=== PATIENT | male | born 1975 | race Caucasian/White ===

== ENCOUNTER 2019-12-09 13:27 | Emergency (ER) | payer BC ==
[~2019-12-09] VITALS: Ht 180.3 cm; Wt 120.8 kg
[2019-12-09 14:14] LABS: BASO # 0.1 10^3/uL (0.0-0.2); BASO % 1.2 % (0.0-1.0); EOS # 0.2 10^3/uL (0.0-0.5); HEMATOCRIT 44.1 % (42.0-52.0); LYMPH % 34.2 % (24.0-44.0); MEAN CORPUSCULAR HEMOGLOBIN 30.9 pg (27.0-33.0); MEAN CORPUSCULAR VOLUME 90.9 fl (80.0-96.0); MONO # 0.7 10^3/uL (0.0-0.8); NEUTROPHILS # 4.9 10^3/uL (1.5-8.5); NEUTROPHILS % 54.5 % (36.0-66.0); PLATELET COUNT, AUTOMATED 202 10^3/uL (150-450); RED BLOOD COUNT 4.85 10^6/uL (4.30-6.10); WHITE BLOOD COUNT 8.9 10^3/uL (4.0-10.0)
[2019-12-09 14:25] LABS: INR 1.05; PROTHROMBIN TIME 13.5 SECONDS (11.8-14.0)
[2019-12-09 14:26] LABS: PARTIAL THROMBOPLASTIN TIME 29.5 SECONDS (25.0-38.4)
[2019-12-09 14:41] LABS: ALBUMIN 4.2 GM/DL (3.2-5.2); ALT/SGPT 38 U/L (12-78); BILIRUBIN,DIRECT < 0.1 MG/DL (0.0-0.2); BILIRUBIN,TOTAL 0.3 MG/DL (0.2-1.0); BLOOD UREA NITROGEN 22 MG/DL (7-18); CALCIUM LEVEL 9.3 MG/DL (8.5-10.1); CARBON DIOXIDE LEVEL 25 MEQ/L (21-32); CHLORIDE LEVEL 108 MEQ/L (98-107); CK-MB VALUE MASS 2.8 NG/ML (<3.6); CPK CREATINE PHOSPHOKINASE 205 U/L (39-308); CREATININE FOR GFR 1.06 MG/DL (0.70-1.30); ETHYL ALCOHOL (ETHANOL) < 0.003 % (0.000-0.010); FREE T4 1.39 NG/DL (0.76-1.46); GLOMERULAR FILTRATION RATE > 60.0 (>60); GLUCOSE, FASTING 98 MG/DL (70-100); LIPASE 121 U/L (73-393); MAGNESIUM LEVEL 2.1 MG/DL (1.8-2.4); MB/CK RELATIVE INDEX 1.37 (< OR =4); POTASSIUM SERUM 4.2 MEQ/L (3.5-5.1); SODIUM LEVEL 139 MEQ/L (136-145); THYROID STIMULATING HORMONE < 0.005 uIU/ML (0.358-3.740); TOTAL PROTEIN 7.7 GM/DL (6.4-8.2); TROPONIN I < 0.02 NG/ML (< 0.10)
--- NOTE | 2019-12-09 14:41 | REP ---
REASON: Chest pain. FINDINGS: The technique utilized in obtaining the radiograph has magnified the cardiac silhouette and accentuated the interstitial markings. The superior mediastinal structures are midline. The cardiac silhouette is unremarkable in size, shape, and position. The diaphragmatic surfaces of the lungs are regular, and the costophrenic angles are clear. The pulmonary reis are clear. The imaged osseous structures are intact. IMPRESSION: There is no acute cardiopulmonary disease. Electronically Signed by Oneil Ordaz DO 12/09/2019 03:00 P
[2019-12-09 15:17] LABS: T UPTAKE 34 % (33-40)
[2019-12-09] MEDS ORDERED: NS 1,000 ML IV ONE (15:30)
[2019-12-09 15:39] LABS: FREE THYROXINE INDEX 2.8 % (1.4-3.8); THYROXINE (T4) 8.3 UG/DL (4.5-12.0)
[2019-12-09] MEDS ORDERED: METOPROLOL SUCC (TopROL XL) 50MG **XL** TAB PO STA (16:59)
[2019-12-09] MEDS ORDERED: METO1TAB7 PO (17:13)
[2019-12-09 17:15] VITALS: BP 122/78
--- NOTE | 2019-12-10 09:10 | ECGEPIP ---
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
--- NOTE | 2019-12-11 14:47 | ECGEPIP ---
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
== END 2019-12-09 17:27 | disposition home or self-care (01) ==
LOC: M ED 13:27
DX: I47.1 Supraventricular tachycardia (principal); I47.2 Ventricular tachycardia; E05.90 Thyrotoxicosis, unspecified without thyrotoxic crisis or storm; Z82.49 Family history of ischemic heart disease and other diseases of the circulatory system; F17.220 Nicotine dependence, chewing tobacco, uncomplicated
CPT/HCPCS: 71045; 80048; 80076; 82550; 82553; 83690; 83735; 84439; 84443; 84484; 85025; 85610; 85730; 93005; 93041; 94760; 96360; 99285; G0480

== ENCOUNTER 2019-12-12 20:19 | Observation (INO) | payer BC ==
[~2019-12-12] VITALS: Ht 180.3 cm; Wt 118.0 kg
[~2019-12-12 20:19] MED LIST: METO1TAB7 PO
[2019-12-12] MEDS ORDERED: METO1TAB32 PO (20:29)
[2019-12-12 20:50] LABS: BASO # 0.1 10^3/uL (0.0-0.2); BASO % 1.4 % (0.0-1.0); EOS # 0.3 10^3/uL (0.0-0.5); EOS % 2.9 % (0.0-3.0); HEMATOCRIT 43.1 % (42.0-52.0); HEMOGLOBIN 14.8 g/dl (13.5-17.5); LYMPH # 3.7 10^3/uL (1.5-5.0); LYMPH % 41.4 % (24.0-44.0); MEAN CORPUSCULAR HGB CONC 34.3 g/dl (32.0-36.5); MEAN CORPUSCULAR VOLUME 90.4 fl (80.0-96.0); MONO # 0.8 10^3/uL (0.0-0.8); MONO % 8.9 % (0.0-5.0); NEUTROPHILS % 45.1 % (36.0-66.0); PLATELET COUNT, AUTOMATED 180 10^3/uL (150-450); RED BLOOD COUNT 4.77 10^6/uL (4.30-6.10); WHITE BLOOD COUNT 8.9 10^3/uL (4.0-10.0)
--- NOTE | 2019-12-12 20:52 | ECGEPIP ---
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
[2019-12-12 21:01] LABS: INR 1.04; PROTHROMBIN TIME 13.3 SECONDS (11.8-14.0)
[2019-12-12 21:02] LABS: PARTIAL THROMBOPLASTIN TIME 31.9 SECONDS (25.0-38.4)
[2019-12-12 21:25] LABS: ALBUMIN 3.9 GM/DL (3.2-5.2); ALT/SGPT 57 U/L (12-78); BILIRUBIN,DIRECT < 0.1 MG/DL (0.0-0.2); BILIRUBIN,TOTAL 0.2 MG/DL (0.2-1.0); BLOOD UREA NITROGEN 22 MG/DL (7-18); CALCIUM LEVEL 8.8 MG/DL (8.5-10.1); CARBON DIOXIDE LEVEL 28 MEQ/L (21-32); CHLORIDE LEVEL 105 MEQ/L (98-107); CK-MB VALUE MASS 1.6 NG/ML (<3.6); CPK CREATINE PHOSPHOKINASE 114 U/L (39-308); CREATININE FOR GFR 1.22 MG/DL (0.70-1.30); FREE T4 1.15 NG/DL (0.76-1.46); GLOMERULAR FILTRATION RATE > 60.0 (>60); GLUCOSE, FASTING 108 MG/DL (70-100); MAGNESIUM LEVEL 1.8 MG/DL (1.8-2.4); PHOSPHORUS LEVEL 4.4 MG/DL (2.5-4.9); POTASSIUM SERUM 3.9 MEQ/L (3.5-5.1); SODIUM LEVEL 138 MEQ/L (136-145); THYROID STIMULATING HORMONE < 0.005 uIU/ML (0.358-3.740); TROPONIN I < 0.02 NG/ML (< 0.10)
[2019-12-12] MEDS ORDERED: FLECAINIDE 50MG TABLET PO ONE (21:45)
[2019-12-12] MEDS ORDERED: METO1TAB7 PO (21:53)
[2019-12-12] MEDS ORDERED: POTASSIUM CHLORIDE 10 MEQ SR TABLET PO ONE (22:00)
[2019-12-12] MEDS ORDERED: MAG SULF 1GM/100ML (MAG RUN) 1 GM in IV 1 EA IV ONE (22:00)
[2019-12-12 23:00] VITALS: BP 131/84
--- NOTE | 2019-12-12 23:47 | HPE ---
DATE OF ADMISSION: 12/12/2019 CHIEF COMPLAINT: Palpitations. Lightheadedness HISTORY OF THE PRESENT ILLNESS: This is a 44-year-old male with no past medical history, presents to the emergency room with recurrent episodes of palpitations. 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 He had drank two cups of caffeinated beverages and felt his heart racing without any shortness of breath. He felt slightly lightheadedness and went inside. This abated after a few minutes. Then, on Monday, he had a similar episode while he was in the house just walking around and doing some chores; it again subsided within a few seconds. 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 It had occurred on and off throughout the day where he would feel palpitations, which would néstor by itself. He noted that taking a deep breath and holding it and pushing would make it subside. It lasted for a few seconds, but was persistent. The patient then went to the emergency room for evaluation. He was found to have paroxysmal supraventricular tachycardia, was given metoprolol 50 mg and was referred to Dr. Wood. The patient was seen by Dr. Wood today and recommended decreasing the dose to 25 mg daily and to schedule an echocardiogram tomorrow. At dinner today, the patient did not feel well. After dinner, as he was trying to wash the dishes, he felt very lightheaded, his heart went very fast, then very slow. According to the , he looked fine, did not look diaphoretic, pale, or purplish. He then sat down, felt a little bit better but would not subside. He called his friend who is an emergency health care / medical job titles (EMT), who then recommended for him to call an ambulance. He was brought into the emergency room, heart rate was ranging between 30-130, blood pressure was well maintained 104 systolic. Glucose level was within normal. He was saturating 98% on room air. Per Dr. Wood, the patient should be started on flecainide 50 mg twice a day. He did receive one dose of flecainide in the ER. His initial EKG showed sinus tachycardia with frequent premature ventricular contractions (PVCs). He had nonsustained ventricular tachycardia (v tach). Potassium (K) and magnesium (mag) were within normal with potassium of 3.9 and magnesium of 1.8. He was supplemented with 40 mEq of potassium and 1 gram intravenously magnesium sulfate. Calcium level was normal at 8.8. Patient's cardiac markers were negative. He was noted to have a TSH of less than 0.005 but free T4 was within normal. According to the patient, this was seen previously on Monday when he was seen in the ER, and he was referred to the provider. Patient otherwise denies fever or chills, shortness of breath, cough, nausea, vomiting, diarrhea, abdominal pain, dysuria, urgency, frequency, near syncope, syncopal episode, recurrent falls, gait ataxia, bilateral upper and lower extremity weakness, paresthesias, headaches, changes in vision. No changes in appetite. No unusual rash or lymphadenopathy. No weight gain or weight loss. PAST MEDICAL HISTORY: Left knee meniscal injury. Hammertoe on the right 2nd and 3rd proximal interphalangeal (PIP) joints. Abnormal thyroid-stimulating hormone (TSH) with possible hyperthyroidism. PAST SURGICAL HISTORY: Left knee meniscal repair. ALLERGIES: No known drug allergies. HOME MEDICATIONS: - metoprolol 25 mg daily, decreased from 50 mg, given by the ER per Dr. Wood's recommendation. 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 He denies any cigarette use. He usually has two beers every couple of nights. Last drink was 12/02/2019. Denies recreational drug use. FAMILY HISTORY: Mother and father are alive. Father is age 73 with diabetes, arrhythmias, pacemaker. Mother alive, age 69, diabetes and thyroid disease. Brother is alive and well, no medical problems. Sister alive with thyroid issues. REVIEW OF SYSTEMS: Per history of the present illness. 12-point system otherwise negative. PHYSICAL EXAMINATION: Temperature 99.1, pulse currently 89, presenting pulse was 132, sinus tachycardia, respiratory rate of 18, blood pressure 129/72, 96% on room air. Generally, the patient is awake, alert, oriented to person, place and time, answering questions appropriately. No conversational dyspnea. HEENT no jugular venous distention (JVD), thyromegaly, or cervical lymphadenopathy. no periorbital edema or exophthalmos. no thyromegaly or nodularity of the thyroid gland which is also nontender. Lungs are clear to auscultation. No wheezing, rales, or rhonchi. Heart: S1, S2, sinus rhythm with episodes of sinus tachycardia. Nondisplaced point of maximum impulse. No murmurs, rubs, or gallops noted. Abdomen: Soft, nontender, nondistended. Positive bowel sounds. No hepatosplenomegaly. No rebound or guarding. Lungs: Clear to auscultation. No wheezing, rales, or rhonchi. Extremities: No cyanosis, clubbing, or any pitting edema. EKG: Sinus tachycardia, ventricular rate of 101 with frequent PVCs, QRS of 23, QT of 371, QTc of 43. LABORATORY DATA: White count 8.9, hemoglobin 14.8, hematocrit 43.1, platelet count 180, 45% neutrophils, 41% lymphocytes, 8.9 monocytes, 2.9 eosinophils, 1.4 basophils. Sodium 138, potassium 3.9, chloride 105, bicarbonate 28, BUN 22, creatinine 1.22, glucose 108, calcium 8.8, phosphorus 4.4, magnesium 1.8, total bilirubin 0.2, direct bilirubin less than 0.1, AST 27, ALT 57, alkaline phosphatase 106, total CK 114, MB fraction 1.6, relative index 1.4, troponin less than 0.02, total protein 7, albumin 3.9, TSH less than 0.005, free T4 1.15. IMAGING STUDIES: Chest x-ray 12/09/2019: No acute cardiopulmonary process. ASSESSMENT AND PLAN: This is a 44-year-old male with no significant past medical history with possible hyperthyroidism with low TSH, presents to the emergency room for the second time after complaining of palpitations, initially seen this past Monday and found to have SVT, given metoprolol 50 mg daily[address] Seen by Dr. Wood today with recommendations to decrease metoprolol to 25 mg daily. Now presents with recurrent palpitations with increased rate to 130 and nonsustained ventricular tachycardia. The patient is admitted and was given one dose of flecainide. IMPRESSION: 1.Near syncope due to SVT / Nonsustained ventricular tachycardia. Patient had multiple beats of ventricular tachycardia. Cardiac markers were negative on admission, will cycle serially. Echocardiogram has been ordered. Patient will be evaluated for other cardiovascular risk factors. Will check lipid panel, A1c, and monitor with serial blood pressure checks and routine vitals. Per Dr. Wood, the patient is to be kept on flecainide 50 mg twice a day. Depending on the echo results, morning attending physician should touch base with Dr. Wood regarding results of the echocardiogram and any other further recommendations. 2. Hyperthyroidism with low TSH level. Free T4, however, is normal. Will check a full thyroid profile,Thyrotropin binding inhibiting immunoglobulin to rule out Grave's disease and nuc med thyroid scan in the morning. 3. Obesity. Body mass index (BMI) of 36.2. Will add metabolic panel. Patient does not have documented hypertension. Will check A1c and lipid panel. Encourage weight loss. 4. Diet: 2-gram sodium diet. 5. Deep vein thrombosis (DVT) prophylaxis with Lovenox subcu daily. MTDD
[2019-12-13] VITALS: BP 130/75
--- NOTE | 2019-12-13 02:11 | REP ---
Clinical: Chest pain . Comparison: 12/09/2019 . Findings: The mediastinum and cardiac silhouette are stable and within normal limits for portable technique. The lung reis are clear without acute consolidation, effusion, or pneumothorax. Skeletal structures are intact. Impression: No acute cardiopulmonary process appreciated. Electronically Signed by Lloyd Gayle MD 12/13/2019 02:02 A
[2019-12-13 03:09] LABS: BLOOD UREA NITROGEN 22 MG/DL (7-18); CALCIUM LEVEL 9.2 MG/DL (8.5-10.1); CARBON DIOXIDE LEVEL 29 MEQ/L (21-32); CHLORIDE LEVEL 106 MEQ/L (98-107); GLOMERULAR FILTRATION RATE > 60.0 (>60); GLUCOSE, FASTING 104 MG/DL (70-100); POTASSIUM SERUM 4.4 MEQ/L (3.5-5.1); SODIUM LEVEL 138 MEQ/L (136-145)
[2019-12-13 04:00] VITALS: BP 123/83
[2019-12-13 05:56] LABS: IONIZED CALCIUM 4.8 MG/DL (4.5-5.3)
[2019-12-13 06:11] LABS: BASO # 0.1 10^3/uL (0.0-0.2); BASO % 1.4 % (0.0-1.0); EOS # 0.2 10^3/uL (0.0-0.5); HEMATOCRIT 46.3 % (42.0-52.0); HEMOGLOBIN 15.9 g/dl (13.5-17.5); LYMPH # 2.8 10^3/uL (1.5-5.0); LYMPH % 35.3 % (24.0-44.0); MEAN CORPUSCULAR HEMOGLOBIN 31.4 pg (27.0-33.0); MEAN CORPUSCULAR HGB CONC 34.3 g/dl (32.0-36.5); MEAN CORPUSCULAR VOLUME 91.3 fl (80.0-96.0); MONO # 0.7 10^3/uL (0.0-0.8); MONO % 8.5 % (0.0-5.0); NEUTROPHILS # 4.2 10^3/uL (1.5-8.5); NEUTROPHILS % 52.6 % (36.0-66.0); PLATELET COUNT, AUTOMATED 205 10^3/uL (150-450); RED BLOOD COUNT 5.07 10^6/uL (4.30-6.10)
[2019-12-13 06:18] LABS: HEMOGLOBIN A1c 5.7 %
[2019-12-13 06:34] LABS: CK-MB VALUE MASS 1.3 NG/ML (<3.6); CPK CREATINE PHOSPHOKINASE 102 U/L (39-308); MB/CK RELATIVE INDEX 1.27 (< OR =4); TROPONIN I < 0.02 NG/ML (< 0.10)
[2019-12-13 06:39] LABS: CHOLESTEROL LEVEL 250 MG/DL (<200); CHOLESTEROL RISK RATIO 4.807 (<5); FREE THYROXINE INDEX 3.2 % (1.4-3.8); HDL CHOLESTEROL 52 MG/DL (>40); LDL CHOLESTEROL 173 MG/DL (<100); MAGNESIUM LEVEL 2.2 MG/DL (1.8-2.4); NON-HDL-C 198 MG/DL; T UPTAKE 36 % (33-40); THYROID STIMULATING HORMONE < 0.005 uIU/ML (0.358-3.740); TRIGLYCERIDES LEVEL 123 MG/DL (<150)
[2019-12-13] MEDS ORDERED: SLF 3 ML SYR IV PRN (07:45)
[2019-12-13 08:00] VITALS: BP 131/71
[2019-12-13] MEDS: FLECAINIDE 50MG TABLET PO SCH ×2 (08:24→20:57)
[2019-12-13 08:32] LABS: BLOOD UREA NITROGEN 19 MG/DL (7-18); CALCIUM LEVEL 8.7 MG/DL (8.5-10.1); CARBON DIOXIDE LEVEL 25 MEQ/L (21-32); CHLORIDE LEVEL 107 MEQ/L (98-107); CREATININE FOR GFR 0.94 MG/DL (0.70-1.30); GLOMERULAR FILTRATION RATE > 60.0 (>60); GLUCOSE, FASTING 98 MG/DL (70-100); POTASSIUM SERUM 4.3 MEQ/L (3.5-5.1); SODIUM LEVEL 138 MEQ/L (136-145)
[2019-12-13] MEDS ORDERED: ENOXAPARIN 40MG/0.4ML SYRINGE (J1650 PER 10MG) SC SCH (09:00)
--- NOTE | 2019-12-13 10:31 | ECGEPIP ---
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 Electronically Signed on 12-13-2019 10:31:06 EDT by Martin Wood
[2019-12-13 12:00] VITALS: BP 136/89
--- NOTE | 2019-12-13 13:51 | ECHO ---
DATE OF STUDY: 12/13/2019 REFERRING PHYSICIAN: Dr. Shwetha Flores INDICATION: Supraventricular tachycardia. HEIGHT: 180 cm. WEIGHT: 118 kg. 2-D MEASUREMENTS: Left atrium: 4.4 cm Aortic root: 3.4 cm Ventricular septum: 0.98 cm Posterior wall: 0.82 cm Left ventricle diastole: 4.9 cm Aortic annulus: 2.5 cm Inferior vena cava: 2.0 cm DOPPLER MEASUREMENTS: Aortic valve velocity: 99.3 cm/sec No mitral stenosis No mitral regurgitation No tricuspid regurgitation No pulmonic regurgitation Mitral E velocity: 49.4 cm/sec Mitral A velocity: 60.2 cm/sec Mitral deceleration time: 211 ms Pulmonary artery systolic pressure: 19 mmHg MITRAL ANNULAR TISSUE DOPPLER: E prime septal: 6.4 cm/sec E prime lateral: 11.4 cm/sec DESCRIPTION: The rhythm was sinus rhythm and sinus bradycardia observed. Image quality was fair with the exception of the apical window which was technically difficult. No pericardial effusion. This was a 2-D, M-mode, color flow Doppler and pulse wave Doppler examination and included mitral annular tissue Doppler. CONCLUSIONS: 1. Normal left ventricle internal dimensions and wall thickness. Normal regional LV wall motion and wall thickening. Normal LV systolic function. LVEF 60% by visual estimate. Grade 1 LV diastolic dysfunction (impaired relaxation filling pattern). 2. Mild left atrial dilatation. 3. Otherwise normal appearing echocardiogram Doppler. 4. Moderately technically difficult echocardiogram.
[2019-12-13] MEDS: SLF 3 ML SYR IV SCH ×3 (14:00→22:00)
[2019-12-13 15:30] LABS: BLOOD UREA NITROGEN 17 MG/DL (7-18); CARBON DIOXIDE LEVEL 26 MEQ/L (21-32); CHLORIDE LEVEL 105 MEQ/L (98-107); CREATININE FOR GFR 0.94 MG/DL (0.70-1.30); GLOMERULAR FILTRATION RATE > 60.0 (>60); GLUCOSE, FASTING 113 MG/DL (70-100); POTASSIUM SERUM 4.2 MEQ/L (3.5-5.1); SODIUM LEVEL 138 MEQ/L (136-145)
[2019-12-13 16:00] VITALS: BP 137/92
--- NOTE | 2019-12-13 18:10 | IPNPDOC ---
Date Seen The patient was seen on 12/13/19. Progress Note SUBJECTIVE: 44-year-old male with past medical history of supraventricular tachycardia which was recently diagnosed, was readmitted for SVT. Patient was diagnosed with SVT 1-2 weeks ago, started on metoprolol, which he was unable to tolerate, dose was decreased by saddle and harness maker, but patient had episodes of bradycardia, metoprolol has been discontinued an outpatient has been started on flecainide during this hospitalization. Patient seen in the morning, ambulating the halls, asymptomatic, no complaints, has remained asymptomatic since last night, without recurrence of arrhythmia. He denies any shortness of breath, chest pain, nausea, vomiting, palpitations, diarrhea, constipation or headaches. 10 point review of system is negative except for above PHYSICAL EXAMINATION: VITAL SIGNS: Please see below. GENERAL: No distress HEENT: Normocephalic, atraumatic, moist mucous membranes NECK: Supple CARDIOVASCULAR EXAMINATION: S1, S2, no murmurs RESPIRATORY EXAMINATION: Clear to auscultation, no wheezing ABDOMINAL EXAMINATION: Soft, nontender, nondistended, positive bowel sounds EXTREMITIES: Range of motion intact SKIN: No rash NEUROLOGICAL EXAMINATION: Alert and oriented 3, no focal deficits PSYCHIATRIC EXAMINATION: Calm and cooperative LABORATORY DATA, IMAGING STUDIES, MICROBIOLOGY: Please see below. ASSESSMENT AND PLAN: 44-year-old male with no significant past medical history and recent diagnosis of SVT. He is readmitted for SVT. PROBLEMS: 1. SVT: Metoprolol discontinued as patient had episodes of bradycardia, continue flecainide, cardiology evaluation appreciated, echocardiogram showing grade 1 diastolic dysfunction and left atrial enlargement, no wall motion abnormalities or acute pathology noted. Patient will require outpatient consultation with stamping die maker and a sleep study. 2. Subclinical hyperthyroidism: TSH low, T4/T3 within normal limits, unable to perform radionucleotide uptake test due to lack of equipment, TSH receptor antibodies ordered, will hold off on treatment for now, no bearing machine operator available at this time. VS, I&O, 24H, Fishbone Vital Signs/I&O Vital Signs Date Time Temp Pulse Resp B/P (MAP) Pulse Ox O2 Delivery O2 Flow Rate FiO2 12/13/19 16:00 97.8 62 17 137/92 (107) 95 Room Air I&O- Last 24 Hours up to 6 AM 12/13/19 06:00 Intake Total 110 ml Output Total 775 ml Balance -665 ml Laboratory Data 24H LABS Laboratory Tests 2 12/12/19 20:33: Immature Granulocyte % (Auto) 0.3, Neutrophils (%) (Auto) 45.1, Lymphocytes (%) (Auto) 41.4, Monocytes (%) (Auto) 8.9H, Eosinophils (%) (Auto) 2.9, Basophils (%) (Auto) 1.4H, Neutrophils # (Auto) 4.0, Lymphocytes # (Auto) 3.7, Monocytes # (Auto) 0.8, Eosinophils # (Auto) 0.3, Basophils # (Auto) 0.1, Nucleated Red Blood Cells % (auto) 0.0, Prothrombin Time 13.3, Prothromb Time International Ratio 1.04, Activated Partial Thromboplast Time 31.9, Anion Gap 5L, Glomerular Filtration Rate > 60.0, Calcium Level 8.8, Phosphorus Level 4.4, Magnesium Level 1.8, Total Bilirubin 0.2, Direct Bilirubin < 0.1, Aspartate Amino Transf (A ST/SGOT) 27, Alanine Aminotransferase (ALT/SGPT) 57, Alkaline Phosphatase 106, Total Creatine Kinase 114, Creatine Kinase MB 1.6, Creatine Kinase MB Relative Index 1.40, Troponin I < 0.02, Total Protein 7.0, Albumin 3.9, Albumin/Globulin Ratio 1.26, Thyroid Stimulating Hormone (TSH) < 0.005L, Free Thyroxine 1.15 12/13/19 02:33: Anion Gap 3L, Glomerular Filtration Rate > 60.0, Calcium Level 9.2 12/13/19 05:33: Immature Granulocyte % (Auto) 0.2, Neutrophils (%) (Auto) 52.6, Lymphocytes (%) (Auto) 35.3, Monocytes (%) (Auto) 8.5H, Eosinophils (%) (Auto) 2.0, Basophils (%) (Auto) 1.4H, Neutrophils # (Auto) 4.2, Lymphocytes # (Auto) 2.8, Monocytes # (Auto) 0.7, Eosinophils # (Auto) 0.2, Basophils # (Auto) 0.1, Nucleated Red Blood Cells % (auto) 0.0, Anion Gap 6L, Glomerular Filtration Rate > 60.0, Calcium Level 8.7, Magnesium Level 2.2, Total Creatine Kinase 102, Creatine Kinase MB 1.3, Creatine Kinase MB Relative Index 1.27, Troponin I < 0.02, Thyro id Stimulating Hormone (TSH) < 0.005L, Estimated Mean Plasma Glucose 117H, Hemoglobin A1c 5.7, Whole Blood Ionized Calcium 4.8, Triglycerides Level 123, Total Cholesterol 250H, LDL Cholesterol 173H, Non-HDL Cholesterol (LDL + VLDL) 198, Total HDL Cholesterol 52, Cholesterol/HDL Ratio 4.807, Free Thyroxine Index 3.2, Thyroxine (T4) 9.0, Triiodothyronine (T3) Uptake 36 12/13/19 14:50: Anion Gap 7L, Glomerular Filtration Rate > 60.0, Calcium Level 9.0 CBC/BMP Laboratory Tests 12/12/19 20:33 12/13/19 02:33 12/13/19 05:33 12/13/19 14:50 LISSA SILVA MD Dec 13, 2019 18:10
[2019-12-13] MEDS ORDERED: ACETAMINOPHEN TAB 650MG DOSE (2X325MG) PO PRN (18:30)
[2019-12-13 20:00] VITALS: BP 115/63
--- NOTE | 2019-12-13 22:20 | IPNPDOC ---
Date Seen The patient was seen on 12/13/19. Progress Note TELE: sustained Vtach x 2 minutes. HD stable and asymptomatic. plan: per [facility] dental surgeon, Dr. Jose Pena, transfer to [facility]rophys[facility] and AICD evaluation. VS, I&O, 24H, Fishbone Vital Signs/I&O Vital Signs Date Time Temp Pulse Resp B/P (MAP) Pulse Ox O2 Delivery O2 Flow Rate FiO2 12/13/19 20:00 97.2 61 16 115/63 (80) 96 Room Air I&O- Last 24 Hours up to 6 AM 12/13/19 05:59 Intake Total 110 ml Output Total 775 ml Balance -665 ml Laboratory Data 24H LABS Laboratory Tests 2 12/13/19 02:33: Anion Gap 3L, Glomerular Filtration Rate > 60.0, Calcium Level 9.2 12/13/19 05:33: Anion Gap 6L, Glomerular Filtration Rate > 60.0, Calcium Level 8.7, Immature Granulocyte % (Auto) 0.2, Neutrophils (%) (Auto) 52.6, Lymphocytes (%) (Auto) 35.3, Monocytes (%) (Auto) 8.5H, Eosinophils (%) (Auto) 2.0, Basophils (%) (Auto) 1.4H, Neutrophils # (Auto) 4.2, Lymphocytes # (Auto) 2.8, Monocytes # (Auto) 0.7, Eosinophils # (Auto) 0.2, Basophils # (Auto) 0.1, Nucleated Red Blood Cells % (auto) 0.0, Estimated Mean Plasma Glucose 117H, Hemoglobin A1c 5.7, Whole Blood Ionized Calcium 4.8, Magnesium Level 2.2, Total Creatine Kinase 102, Creatine Kinase MB 1.3, Creatine Kinase MB Relative Index 1.27, Troponin I < 0.02, Triglycerides Level 123, Total Cholesterol 250H, LDL Cholesterol 173H, Non-HDL Cholesterol (LDL + VLDL) 198, Total HDL Cholesterol 52, Cholesterol/HDL Ratio 4.807, Thyroid Stimulating Hormone (TSH) < 0.005L, Free Thyroxine Index 3.2, Thyroxine (T4) 9.0, Triiodothyronine (T3) Uptake 36 12/13/19 14:50: Anion Gap 7L, Glomerular Filtration Rate > 60.0, Calcium Level 9.0 12/13/19 20:42: CBC/BMP Laboratory Tests 12/13/19 02:33 12/13/19 05:33 12/13/19 14:50 MITZI DC MD Dec 13, 2019 22:20
--- NOTE | 2019-12-13 23:11 | DS.PDOC ---
Discharge Summary General Date of Admission Dec 12, 2019 at 20:20 Date of Discharge 12/13/2019 Attending Physician: MITZI DC MD Specialist/Consultants Involve: Jose Pena Specialist/Consultants Involve Dr. Munoz-part of same cardiology group as Dr. Pena. Discharge Summary PROCEDURES PERFORMED DURING STAY: Transthoracic echocardiogram ADMITTING/DISCHARGE DIAGNOSES: Sustained ventricular tachycardia Supraventricular tachycardia Non-sustained ventricular tachycardia hyperthyroidism Obesity hypercholesterolemia COMPLICATIONS/CHIEF COMPLAINT: Palpitations HISTORY OF PRESENT ILLNESS/HOSPITAL COURSE: This is a 44-year-old male with no past medical history who presented to the emergency department last Monday with recurrent episodes of palpitations. He states he was working outside in the [employer], had to caffeinated beverages and felt his heart racing without any shortness of breath. He began to feel slightly lightheaded and went inside. This abated after a few minutes. The following day he had a similar episode while in the house walking around doing chores that again subsided within a few seconds. 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 He noted that taking a deep breath and holding it would cause the palpitations to cease. They typically lasted a few seconds but were persistent so he elected to go to the ED. On initial evaluation at [facility] ED he was found to have paroxysmal supraventricular tachycardia and was given metoprolol 50 mg [address] referred to Dr. Wood, emt p. The patient was seen by Dr. Wood on 12/12/2019 and the dose was decreased to 25 mg daily with an echocardiogram scheduled for the following day. At dinner on 12/12/2019, the patient began to not feel well, became lightheaded had palpitations and then felt his heart slowed down as well. Despite sitting down the palpitations persisted. He called his friend who is an EMT who recommended calling EMS. While in the ED his heart rate ranged from 30-130 bpm, but was otherwise normotensive, satting 98% on room air, with normal blood glucose levels. Dr. Wood was contacted and he recommended initiating oral flecainide 50 mg twice daily. The patient received a single dose of flecainide while in the emergency department. His EKG showed sinus tachycardia with frequent PVCs. He had nonsustained ventricular tachycardia. His potassium and magnesium were within normal limits with potassium of 3.9 and magnesium of 1.8. He was given supplemental potassium as well as magnesium sulfate. His cardiac markers were negative. He was noted to have a TSH of less than 0.005 with a normal free T4 as well. He was admitted to the progressive care unit and monitored on telemetry where he continued to have runs of nonsustained ventricular tachycardia throughout the night. During the daytime on 12/13/2019 he only had a single episode of V. tach lasting 50 beats. However at approximately 2030 on 12/13/2019 he had 2 minutes of asymptomatic monomorphic sustained ventricular tachycardia. At that time we reached out to the on-call emt p, Dr. Pena, who recommended urgent transfer to [facility] for consideration of cardiac ablative therapy. Of note, the patient feels that he becomes symptomatic anytime he begins to doze off or go to sleep, but is otherwise asymptomatic when he is lying in bed and awake. His evening dose of flecainide was held. In total he has received 100 mg of oral flecainide during his stay here. DISCHARGE MEDICATIONS: Please see below. ALLERGIES: Please see below. Vitals: (see below) General: No acute distress, laying comfortably in bed. HEENT: Normocephalic, atraumatic. EOMI. No scleral icterus. Moist mucous membranes. No pharyngeal erythema or uvular deviation. Neck: No JVD, lymphadenopathy, or thyromegaly. Cardiac: intermittent tachycardia and regular rate/rhythm, normal S1 and S2, No murmurs, gallops, rubs. Pulm: Clear to auscultation b/l. Symmetric thorax. No wheezing, crackles, rhonch i Abd: Bowel Sounds present. Abdomen is soft, non-tender, non-distended. No masses or eccymosis. Ext: No edema or cyanosis Skin: No skin changes Neuro: No focal neuro deficits Psych: Appropriate affect LABORATORY DATA: Please see below. IMAGIN12/12/2019 CXR: No acute cardiopulmonary process. 12/13/2019 Echocardiogram: 2-D MEASUREMENTS: Left atrium: 4.4 cm Aortic root: 3.4 cm Ventricular septum: 0.98 cm Posterior wall: 0.82 cm Left ventricle diastole: 4.9 cm Aortic annulus: 2.5 cm Inferior vena cava: 2.0 cm DOPPLER MEASUREMENTS: Aortic valve velocity: 99.3 cm/sec No mitral stenosis No mitral regurgitation No tricuspid regurgitation No pulmonic regurgitation Mitral E velocity: 49.4 cm/sec Mitral A velocity: 60.2 cm/sec Mitral deceleration time: 211 ms Pulmonary artery systolic pressure: 19 mmHg MITRAL ANNULAR TISSUE DOPPLER: E prime septal: 6.4 cm/sec E prime lateral: 11.4 cm/sec DESCRIPTION: The rhythm was sinus rhythm and sinus bradycardia observed. Image quality was fair with the exception of the apical window which was technically difficult. No pericardial effusion. This was a 2-D, M-mode, color flow Doppler and pulse wave Doppler examination and included mitral annular tissue Doppler. CONCLUSIONS: 1. Normal left ventricle internal dimensions and wall thickness. Normal regional LV wall motion and wall thickening. Normal LV systolic function. LVEF 60% by visual estimate. Grade 1 LV diastolic dysfunction (impaired relaxation filling pattern). 2. Mild left atrial dilatation. 3. Otherwise normal appearing echocardiogram Doppler. 4. Moderately technically difficult echocardiogram. PROGNOSIS: fair ACTIVITY: As tolerated. DIET: As tolerated DISCHARGE PLAN: Transfer to [facility] TO FOLLOWUP ON ON OUTPATIENT: 1. Low TSH with normal FT4, T3, T4 binding globulin, thyroid stim immunoglobulin pending DISCHARGE CONDITION: [Stable]. TIME SPENT ON DISCHARGE: Greater than 30 minutes. Vital Signs/I&Os Vital Signs Date Time Temp Pulse Resp B/P (MAP) Pulse Ox O2 Delivery O2 Flow Rate FiO2 12/13/19 20:00 97.2 61 16 115/63 (80) 96 Room Air I&O- Last 24 Hours up to 6 AM 12/13/19 06:00 Intake Total 110 ml Output Total 775 ml Balance -665 ml Laboratory Data Labs 24H Laboratory Tests 2 12/13/19 02:33: Anion Gap 3L, Glomerular Filtration Rate > 60.0, Calcium Level 9.2 12/13/19 05:33: Anion Gap 6L, Glomerular Filtration Rate > 60.0, Calcium Level 8.7, Immature Granulocyte % (Auto) 0.2, Neutrophils (%) (Auto) 52.6, Lymphocytes (%) (Auto) 35.3, Monocytes (%) (Auto) 8.5H, Eosinophils (%) (Auto) 2.0, Basophils (%) (Auto) 1.4H, Neutrophils # (Auto) 4.2, Lymphocytes # (Auto) 2.8, Monocytes # (Auto) 0.7, Eosinophils # (Auto) 0.2, Basophils # (Auto) 0.1, Nucleated Red Bloo d Cells % (auto) 0.0, Estimated Mean Plasma Glucose 117H, Hemoglobin A1c 5.7, Whole Blood Ionized Calcium 4.8, Magnesium Level 2.2, Total Creatine Kinase 102, Creatine Kinase MB 1.3, Creatine Kinase MB Relative Index 1.27, Troponin I < 0.02, Triglycerides Level 123, Total Cholesterol 250H, LDL Cholesterol 173H, Non-HDL Cholesterol (LDL + VLDL) 198, Total HDL Cholesterol 52, Cholesterol/HDL Ratio 4.807, Thyroid Stimulating Hormone (TSH) < 0.005L, Free Thyroxine Index 3.2, Thyroxine (T4) 9.0, Triiodothyronine (T3) Uptake 36 12/13/19 14:50: Anion Gap 7L, Glomerular Filtration Rate > 60.0, Calcium Level 9.0 12/13/19 20:42: CBC/BMP Laboratory Tests 12/13/19 02:33 12/13/19 05:33 12/13/19 14:50 Discharge Medications Scheduled Metoprolol Succinate (Metoprolol Succinate) 50 Mg Tab.er.24h, 25 MG PO DAILY, (Reported) Allergies Coded Allergies: No Known Allergies (Unverified , 12/09/19) GME ATTESTATION GME ATTESTATION My faculty preceptor for this patient encounter was physically present during the encounter and was fully available. All aspects of the patient interview, examination, medical decision making process, and medical care plan development were reviewed and approved by the faculty preceptor. The faculty preceptor is aw are and concurs with the plan as stated in the body of this note and will attest to such by his/her cosignature. HASEEB PATEL DO Dec 13, 2019 23:11
== END 2019-12-13 23:32 | disposition short-term general hospital (02) ==
LOC: M ED 20:19 → M ED INP 20:20 → ENRESERVTM 21:56 → ENRESERVDT 21:56 → M PCU 22:40
PROVIDERS: ADMIT General Practice; ATTEND General Practice
DX: I47.2 Ventricular tachycardia (principal); I47.1 Supraventricular tachycardia; I49.3 Ventricular premature depolarization; R55 Syncope and collapse; R00.2 Palpitations; E05.90 Thyrotoxicosis, unspecified without thyrotoxic crisis or storm; E66.9 Obesity, unspecified; E78.00 Pure hypercholesterolemia, unspecified; Z68.36 Body mass index [BMI] 36.0-36.9, adult; Z79.899 Other long term (current) drug therapy
CPT/HCPCS: 36415; 71045; 80048; 80061; 80076; 82330; 82550; 82553; 83036; 83735; 84100; 84436; 84439; 84442; 84443; 84445; 84479; 84484; 85025; 85610; 85730; 93005; 93041; 93306; 94760; 96372; 99285; J1650; J3475

== ENCOUNTER 2019-12-16 13:08 | Observation (INO) | payer BC ==
[~2019-12-16] VITALS: Ht 180.3 cm; Wt 114.9 kg
[~2019-12-16 13:08] MED LIST changes: +METO1TAB32 PO
[2019-12-16] MEDS ORDERED: SOTA80TA53 PO (13:21)
[2019-12-16 14:18] LABS: BASO # 0.1 10^3/uL (0.0-0.2); EOS # 0.2 10^3/uL (0.0-0.5); EOS % 1.7 % (0.0-3.0); HEMATOCRIT 44.2 % (42.0-52.0); HEMOGLOBIN 14.9 g/dl (13.5-17.5); LYMPH # 2.6 10^3/uL (1.5-5.0); LYMPH % 24.3 % (24.0-44.0); MEAN CORPUSCULAR HEMOGLOBIN 30.4 pg (27.0-33.0); MEAN CORPUSCULAR HGB CONC 33.7 g/dl (32.0-36.5); MEAN CORPUSCULAR VOLUME 90.2 fl (80.0-96.0); MONO # 0.8 10^3/uL (0.0-0.8); MONO % 7.8 % (0.0-5.0); NEUTROPHILS # 6.8 10^3/uL (1.5-8.5); NEUTROPHILS % 64.8 % (36.0-66.0); PLATELET COUNT, AUTOMATED 211 10^3/uL (150-450); WHITE BLOOD COUNT 10.5 10^3/uL (4.0-10.0)
--- NOTE | 2019-12-16 14:27 | REP ---
CHEST, SINGLE VIEW: There is no evidence of acute infiltrate. No pleural effusion is seen. The heart is normal in size. The mediastinal silhouette is unremarkable. The visualized osseous structures are intact. IMPRESSION: No acute pulmonary disease. Electronically Signed by Apolinar Rogers MD 12/16/2019 03:21 P
[2019-12-16 14:29] LABS: INR 1.03; PROTHROMBIN TIME 13.2 SECONDS (11.8-14.0)
[2019-12-16 14:30] LABS: PARTIAL THROMBOPLASTIN TIME 33.3 SECONDS (25.0-38.4)
--- NOTE | 2019-12-16 14:37 | REP ---
CT BRAIN WITHOUT IV CONTRAST: CT brain performed without IV contrast. Coronal reconstruction images are performed. The ventricles are normal in size and position with no midline shift or mass effect. Rogers-white differentiation is well maintained. There is no acute intracranial hemorrhage or extra-axial fluid collection. Bone window examination is unremarkable. IMPRESSION: Negative noncontrast CT brain. Electronically Signed by Apolinar Rogers MD 12/16/2019 03:22 P
[2019-12-16 14:44] LABS: BLOOD UREA NITROGEN 17 MG/DL (7-18); CALCIUM LEVEL 9.6 MG/DL (8.5-10.1); CARBON DIOXIDE LEVEL 29 MEQ/L (21-32); CHLORIDE LEVEL 103 MEQ/L (98-107); CK-MB VALUE MASS 1.7 NG/ML (<3.6); CPK CREATINE PHOSPHOKINASE 216 U/L (39-308); CREATININE FOR GFR 0.89 MG/DL (0.70-1.30); GLOMERULAR FILTRATION RATE > 60.0 (>60); GLUCOSE, FASTING 102 MG/DL (70-100); MB/CK RELATIVE INDEX 0.79 (< OR =4); POTASSIUM SERUM 4.1 MEQ/L (3.5-5.1); SODIUM LEVEL 137 MEQ/L (136-145); TROPONIN I < 0.02 NG/ML (< 0.10)
[2019-12-16] MEDS ORDERED: ASPIRIN 325 MG TAB PO ONE (15:00)
[2019-12-16] MEDS ORDERED: ATORVASTATIN 20 MG TAB PO ONE (15:45)
[2019-12-16] MEDS ORDERED: ACETAMINOPHEN TAB 650MG DOSE (2X325MG) PO PRN (15:45)
--- NOTE | 2019-12-16 15:51 | HPEPDOC ---
General Date of Admission Date of Service: Dec 16, 2019 Chief Complaint The patient is a 44-year-old male admitted with a reason for visit of S/S Stroke. Source: Patient Exam Limitations: No limitations Timing/Duration: Other Severity: Other (out applicable) Associated Symptoms: Other (heaviness of left arm and left leg and numbness of tongue) History of Present Illness This is a 44 years old white male with past medical history of abnormal TSH, possible hypothyroidism, recently was transferred to [facility] to [place] with SVT. Patient was unable to complete his stress test. There secondary to abnormal rhythm and he was discharged home on by mouth sotalol yesterday. Today, patient felt heaviness office left leg and arm and also tongue got numb and heavy for about 45 minutes with resolution of symptoms and spontaneously after that time. Patient denies any chest pain, shortness of breath, nausea, vomiting, dizziness, etc. Patient is being admitted with the diagnosis of TIA, rule out CVA Home Medications Scheduled Sotalol HCl (Sotalol) 80 Mg Tablet, 80 MG PO BID, (Reported) Allergies Coded Allergies: No Known Allergies (Unverified , 12/09/19) Past Medical History Medical History History of very low TSH, scheduled at [place] in 2 days. 5. Fine needle aspiration biopsy of his thyroid nodule Surgical History Left knee meniscus repair Family History Father has diabetes. Mother has also diabetes. They both are alive Social History * Smoker: Denies Alcohol: Denies Drugs: denies A-FIB/CHADSVASC A-FIB History Current/History of A-Fib/PAF?: No Review of Systems Constitutional: Denies: Chills, Fever, Malaise, Night Sweats, Weakness, Fatigue, Weight Loss, Lethargy, Other Eyes: Denies: Pain, Vision change, Conjunctivae inflammation, Eyelid inflammation, Redness, Other ENT: Denies: Head Aches, Ear Pain, Dysphagia, Sinus Congestion, Post Nasal Drip, Sore Throat, Epistaxis, Other Symptoms Skin: Denies: Rash, Lesions, Jaundice, Bruising, Itching, Dry, Breakdown, Nail Changes, Other Pulmonary: Denies: Dyspnea, Cough, Pleuritic Chest Pain, Other Symptoms Cardiovascular: Denies: Chest Pain, Palpitations, Orthopnea, Paroxysmal Noc. Dyspnea, Edema, Lt Headedness, Other Symptoms Gastrointestinal: Denies: Nausea, Vomiting, Abdominal Pain, Diarrhea, Constipation, Melena, Hematochezia, Other Symptoms Genitourinary: Denies: Dysuria, Frequency, Incontinence, Hematuria, Retention, Other Symptoms Hematologic: Denies: Bruising, Bleeding Excessively, Petecchia, Purpura, Enlarged Lymph Nodes, Other Hematologic Endocrine: Denies: Polydipsia, Polyphagia, Polyuria, Heat Intolerance, Cold Intolerance, Other Endocrine Sx Musculoskeletal: Denies: Neck Pain, Back Pain, Shoulder Pain, Arm Pain, Hand Pain, Leg Pain, Foot Pain, Joint Pain, Muscle Pain, Spasms, Other Symptoms Neurological: Reports: Other Symptoms (numbness of left arm and leg and tongue) Psych: Denies: Mood Normal, Anxiety, Depression, Memory Issues, Thoughts of Self Harm, Anger, Thoughts of Harming Other, Other Psych Physical Examination General Exam: Positive: Alert, Cooperative Eye Exam: Positive: PERRLA, Conjunctiva & lids normal ENT Exam: Positive: Atraumatic, Mucous membr. moist/pink Neck Exam: Positive: Supple Chest Exam: Positive: Clear to auscultation, Normal air movement Heart Exam: Positive: Rate Normal, Normal S1 Abdomen Exam: Positive: Normal bowel sounds, Soft Extremity Exam: Positive: Normal pulses Skin Exam: Positive: Nl turgor and temperature Neuro Exam: Positive: Strength at 5/5 X4 ext, Cranial Nerves 3-12 NL, Reflexes 2+ Psych Exam: Positive: Mood NL, Oriented x 3 Vital Signs Vital Signs Date Time Temp Pulse Resp B/P (MAP) Pulse Ox O2 Delivery O2 Flow Rate FiO2 12/16/19 14:15 56 16 125/77 (93) 99 Room Air 12/16/19 13:28 98.0 Laboratory Data Labs 24H Laboratory Tests 2 12/16/19 14:03: Bedside Glucose (Misc Panel) 107H 12/16/19 14:06: Immature Granulocyte % (Auto) 0.4, Neutrophils (%) (Auto) 64.8, Lymphocytes (%) (Auto) 24.3, Monocytes (%) (Auto) 7.8H, Eosinophils (%) (Auto) 1.7, Basophils (%) (Auto) 1.0, Neutrophils # (Auto) 6.8, Lymphocytes # (Auto) 2.6, Monocytes # (Auto) 0.8, Eosinophils # (Auto) 0.2, Basophils # (Auto) 0.1, Nucleated Red Blood Cells % (auto) 0.0, Prothrombin Time 13.2, Prothromb Time International Ratio 1.03, Activated Partial Thromboplast Time 33.3, Anion Gap 5L, Glomerular Filtration Rate > 60.0, Calcium Level 9.6, Total Creatine Kinase 216, Creatine Kinase MB 1.7, Creatine Kinase MB Relative Index 0.79, Troponin I < 0.02 CBC/BMP Laboratory Tests 12/16/19 14:06 Problems (1) TIA (transient ischemic attack) Status: Acute Problem Text: Admit patient to PCU under telemetry CT of the head was done which was essentially negative Cardiac telemetry monitoring Will order MRI of the brain Carotid Dopplers Serial troponin Will add aspirin 325 mg and Lipitor 20 mg by mouth daily Repeat lipid profile and thyroid profile in a.m. Echocardiogram was already done on last admission: 1. Normal left ventricle internal dimensions and wall thickness. Normal regional LV wall motion and wall thickening. Normal LV systolic function. LVEF 60% by visual estimate. Grade 1 LV diastolic dysfunction (impaired relaxation filling pattern). 2. Mild left atrial dilatation. 3. Otherwise normal appearing echocardiogram Doppler. 4. Moderately technically difficult echocardiogram. DVT prophylaxis with Lovenox Diet low-cholesterol diet Activity as tolerated Continue home med (sotolol) (2) Hyperthyroidism Status: Acute Problem Text: Patient is a TSH was found very low on last admission with normal T3, T4 he is scheduled for further workup at [place], including possible need for aspiration of his thyroid nodule i will defer all his thyroid workup to endocrine clinic at [place] Plan / VTE VTE Prophylaxis Ordered?: Yes DYLAN RANDOLPH MD Dec 16, 2019 15:51
--- NOTE | 2019-12-16 17:09 | REPVR ---
PROCEDURE INFORMATION: Exam: MR Head Without Contrast Exam date and time: 12/16/2019 4:55 PM Age: 44 years old Clinical indication: Numbness / parasthesia; Left; Additional info: TIA TECHNIQUE: Imaging protocol: MR of the head without contrast. COMPARISON: CT Head without contrast 12/16/2019 1:58 PM FINDINGS: Brain: There is no acute cortical infarction, intracranial hemorrhage or mass. No demyelinating plaques are prior microhemorrhages are detected. Ventricles: Normal. No ventriculomegaly. Bones/joints: Unremarkable. Soft tissues: Unremarkable. Sinuses: No acute sinusitis. Mastoid air cells: Normal as visualized. No mastoid effusion. Orbits: Unremarkable. IMPRESSION: No acute cerebral infarction or intracranial hemorrhage. Electronically signed by: Shwetha Claros On 12/16/2019 17:09:34 PM
[2019-12-16 18:00] VITALS: BP 134/78
--- NOTE | 2019-12-16 18:57 | REP ---
CAROTID ULTRASOUND: Real-time ultrasound evaluation and duplex Doppler interrogation of the extracranial carotid vasculature is performed. There is minimal plaquing and narrowing in both carotid bulbs extending into the internal and external carotid arteries. Luminal narrowing is less than 50%. There is no evidence of hemodynamically significant stenosis of either internal carotid artery. Normal flow velocities are seen. The vertebral arteries demonstrate normal direction of flow. RIGHT LEFT Peak systolic velocity ICA 85.9 cm/s 70.2 cm/s End diastolic velocity ICA 20.30 cm/s 32 cm/s Peak systolic velocity CCA 93.7cm/s 122.2 cm/s Peak systolic velocity ECA 86.5 cm/s 77.6 cm/s ICA/CCA ratio 0.9 0.5 IMPRESSION: Bilateral luminal narrowing of the internal carotid arteries less than 50%. No evidence of hemodynamically significant stenosis. Electronically Signed by Apolinar Rogers MD 12/16/2019 06:48 P
--- NOTE | 2019-12-16 19:09 | ECGEPIP ---
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
[2019-12-16 20:00] VITALS: BP 121/79
[2019-12-16] MEDS ORDERED: SLF 3 ML SYR IV PRN (20:30)
[2019-12-16] MEDS: SLF 3 ML SYR IV SCH (20:31)
[2019-12-16] MEDS: SOTALOL HCL 80 MG TAB PO SCH (20:32)
[2019-12-16 22:07] LABS: IONIZED CALCIUM 4.6 MG/DL (4.5-5.3)
[2019-12-16 22:25] LABS: MAGNESIUM LEVEL 2.2 MG/DL (1.8-2.4)
[2019-12-17] VITALS: BP 111/65
[2019-12-17 04:00] VITALS: BP 117/78
[2019-12-17 05:23] LABS: HEMOGLOBIN 14.8 g/dl (13.5-17.5); MEAN CORPUSCULAR HEMOGLOBIN 30.8 pg (27.0-33.0); MEAN CORPUSCULAR HGB CONC 34.4 g/dl (32.0-36.5); MEAN CORPUSCULAR VOLUME 89.6 fl (80.0-96.0); PLATELET COUNT, AUTOMATED 188 10^3/uL (150-450); WHITE BLOOD COUNT 7.2 10^3/uL (4.0-10.0)
[2019-12-17 05:48] LABS: ALT/SGPT 38 U/L (12-78); BILIRUBIN,TOTAL 0.7 MG/DL (0.2-1.0); BLOOD UREA NITROGEN 18 MG/DL (7-18); CALCIUM LEVEL 9.1 MG/DL (8.5-10.1); CARBON DIOXIDE LEVEL 27 MEQ/L (21-32); CHLORIDE LEVEL 104 MEQ/L (98-107); CHOLESTEROL LEVEL 210 MG/DL (<200); CHOLESTEROL RISK RATIO 5.121 (<5); CREATININE FOR GFR 0.91 MG/DL (0.70-1.30); FREE THYROXINE INDEX 3.1 % (1.4-3.8); GLOMERULAR FILTRATION RATE > 60.0 (>60); GLUCOSE, FASTING 95 MG/DL (70-100); HDL CHOLESTEROL 41 MG/DL (>40); LDL CHOLESTEROL 141 MG/DL (<100); NON-HDL-C 169 MG/DL; POTASSIUM SERUM 4.3 MEQ/L (3.5-5.1); SODIUM LEVEL 138 MEQ/L (136-145); T UPTAKE 34 % (33-40); THYROID STIMULATING HORMONE < 0.005 uIU/ML (0.358-3.740); THYROXINE (T4) 9.1 UG/DL (4.5-12.0); TOTAL PROTEIN 7.3 GM/DL (6.4-8.2); TRIGLYCERIDES LEVEL 139 MG/DL (<150); TROPONIN I < 0.02 NG/ML (< 0.10)
[2019-12-17] MEDS: SLF 3 ML SYR IV SCH ×2 (06:24→14:20)
[2019-12-17 08:00] VITALS: BP 133/84
[2019-12-17 08:49] VITALS: BP 133/84
[2019-12-17] MEDS: SOTALOL HCL 80 MG TAB PO SCH (08:49)
[2019-12-17] MEDS ORDERED: ENOXAPARIN 40MG/0.4ML SYRINGE (J1650 PER 10MG) SC SCH (09:00)
[2019-12-17] MEDS ORDERED: ASPIRIN 325 MG TAB PO SCH (09:00)
[2019-12-17 12:00] VITALS: BP 142/88
[2019-12-17] MEDS ORDERED: ASPI-1 PO (14:08)
[2019-12-17] MEDS ORDERED: ACET1TAB55 PO (14:08)
[2019-12-17] MEDS ORDERED: LOVE1INJ SC (14:08)
--- NOTE | 2019-12-17 15:11 | DS.PDOC ---
Discharge Summary General Date of Admission Dec 16, 2019 at 13:09 Date of Discharge 12/17/19. Attending Physician: Carla Kolb MD Specialist/Consultants Involve: Jose Pena Discharge Summary HISTORY OF PRESENT ILLNESS: This is a 44 years old white male with past medical history of abnormal TSH, possible hyperthyroidism, recently was transferred to [facility] to [place] with SVT, paroxysmal atrial fibrillation. Patient was unable to complete his stress test due to abnormal cardiac rhythm. He was hospitalized there from 12/13/19-12/15/19. He was discharged home sotalol, no anticoagulation. After discharge he had to have the sotalol dose modified by PCP due to abnormal side effects. On 12/16/19 patient felt heaviness office left leg and arm and also tongue got numb and heavy for about 45 minutes with resolution of symptoms and spontaneously after that time. Patient denies any chest pain, shortness of breath, nausea, vomiting, dizziness, etc. CT head in ER was neg. Patient was admitted with the diagnosis of TIA, rule out CVA HOSPITAL COURSE: During hospital admission, patient had no residual neurological deficits. Patient had recent echocardiogram done at [facility] over the weekend showing no abnormalities. Carotid US neg. MRI brain done on 12/17/19 neg. Overnight patient had two episodes of arrhythmia on telemetry. First 10 seconds of monomorphic, nonsustained VT and Second: 10 seconds of what initially started off as monomorphic but later became polymorphic, possible torsades. patient was on his home dose of sotalol. Patient did admit to occasional racing heart rate while here, occasional shortness of breath at times with ambulating. Case was discussed in great detail with both Dr. Davidson Gregorio (cardiology, [facility]) and Dr. Pena (cardiology, our facility). They also discussed the case together. 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 It is difficult to r/o hyperthyroidism as cause of at least some of arrhythmias. Dr. Rooney (cardiology, [facility]) accepted patient and will continue workup there. We are recommending endocrinology consult as well for hyperthyroidism. At the time of transfer, patient denies shortness of breath, n/v/d, chest pain. REVIEW OF SYSTEMS: CONSTITUTIONAL: Denies unexplained weight gain or weight loss, loss of appetite, fever, night sweats EYES: Denies eye drainage, eye pain, visual changes, dry/irritated eye EARS, NOSE, MOUTH, THROAT: Denies difficulty hearing, ringing in ears, mouth sores, loose teeth, sore throat, facial numbness or pain NECK: Denies swollen glands CARDIOVASCULAR: Denies chest pains, swelling of feet or legs, pain in legs with walking RESPIRATORY: Denies shortness of breath, night sweats, wheezing, sputum production, oxygen at home, coughing up blood, cough lasting > 1 month GASTROINTESTINAL: Denies abdominal pain, constipation, bloody stool, diarrhea, heartburn, nausea, vomiting GENITOURINARY: Denies painful urination, bloody urine, frequent urination, urgency, leaking urine, impotence MUSCULOSKELETAL: Denies joint pain, muscle pain, leg swelling INTEGUMENTARY: Denies rash, itching, new skin lesion, change in existing skin lesion, hair loss or increase, breast changes. NEUROLOGICAL: Denies headaches, dizziness, difficulty walking, numbness or tingling PSYCHIATRIC: Denies depression, anxiety, recurrent bad thoughts, mood swings, hallucinations PAST MEDICAL HISTORY: 1. Abnormal TSH 2. Thyroid nodule (scheduled for FNA 12/20/19) 3. Hx of SVT PAST SURGICAL HISTORY: 1. Left knee meniscus repair FAMILY HISTORY: Father has diabetes. Mother has also diabetes. They both are alive SOCIAL HISTORY: * Smoker: Denies Alcohol: denies Drugs: denies ALLERGIES: Please see below. DISCHARGE MEDICATIONS: Please see below. PHYSICAL EXAMINATION: CONSTITUTIONAL: No acute distress, resting comfortably, AAO x 3 EYES: PERRLA, EOM intact, corrective lenses in place HENT, MOUTH: Normocephalic, atraumatic, moist mucous membranes, NECK: SUPPLE, no JVD, no lymphadenopathy, no carotid bruit CV: Regular rate and rhythm, S1S2 normal, no murmurs/rubs/gallops RESPIRATORY: Clear to auscultation bilaterally, no rales/rhonchi/wheezes GI: BS positive in 4 quadrants, soft, nontender, nondistended, no rebound or guarding, no organomegaly : Deferred MUSCULOSKELETAL: Normal ROM. No cyanosis, clubbing, swelling, joint deformity, extremity edema INTEGUMENTARY: Intact, no rashes, no lesions, no erythema NEUROLOGIC: Cranial Nerves II-XII are intact, no focal deficits, 5/5 strength in lower and upper ext PSYCHIATRIC: Mood and affect are normal LABORATORY DATA: Please see below IMAGING: CT head: No acute intracranial abnormality MRI brain: No acute cerebral infarction or intracranial hemorrhage. Carotid US: Bilateral luminal narrowing of the internal carotid arteries less than 50%. No evidence of hemodynamically significant stenosis. CXR: No acute pulmonary disease. ASSESSMENT: Patient is a 44 y/o M transferring to [facility] for recurrent, symptomatic monomorphic VT, nonsustained and hyperthyroidism PLAN: 1. Symptomatic monomorphic VT, nonsustained. At times polymorphic and nonsustained, hx of paroxysmal atrial fib on last admission. ? underlying hyperthyroidism as possible cause of some arrhythmia. Both recent episodes lasted 10 seconds on evening of 12/16/19. Stopped sotalol and patient is current asymptomatic. Holding off on starting new treatment, cardiology accepting as primary to address. 2. Hyperthyrodism, acute. TSH <0.005, T3 and T4 normal. Thyroid nodules needing FNA, was scheduled for this coming Monday at [facility]. Has never seen endocrinology. Would recommend consult. 3. TIA. MRI and CT neg, no residual deficits. At baseline. Workup above. On statin, ASA. 4. DVT px. Enoxaparin. DISPOSITION: Transferring to [facility], Dr. Rooney. TIME SPENT ON DISCHARGE: Greater than 30 minutes. Vital Signs/I&Os Vital Signs Date Time Temp Pulse Resp B/P (MAP) Pulse Ox O2 Delivery O2 Flow Rate FiO2 12/17/19 12:00 98.1 52 17 142/88 (106) 98 Room Air I&O- Last 24 Hours up to 6 AM 12/17/19 06:00 Intake Total 300 ml Output Total 650 ml Balance -350 ml Laboratory Data Labs 24H Laboratory Tests 2 12/16/19 19:53: Troponin I < 0.02 12/16/19 22:00: Whole Blood Ionized Calcium 4.6, Magnesium Level 2.2 12/17/19 04:58: Troponin I < 0.02, Nucleated Red Blood Cells % (auto) 0.0, Anion Gap 7L, Glomerular Filtration Rate > 60.0, Calcium Level 9.1, Total Bilirubin 0.7, Aspartate Amino Transf (AST/SGOT) 16, Alanine Aminotransferase (ALT/SGPT) 38, Alkaline Phosphatase 97, Total Protein 7.3, Albumin 4.0, Albumin/Globulin Ratio 1.21, Triglycerides Level 139, Total Cholesterol 210H, LDL Cholesterol 141H, Non-HDL Cholesterol (LDL + VLDL) 169, Total HDL Cholesterol 41, Cholesterol/HDL Ratio 5.121H, Thyroid Stimulating Hormone (TSH) < 0.005L, Free Thyroxine Index 3.1, Thyroxine (T4) 9.1, Triiodothyronine (T3) Uptake 34 CBC/BMP Laboratory Tests 12/16/19 22:00 12/17/19 04:58 Discharge Medications Scheduled Aspirin (Aspirin) 325 Mg Tablet, 325 MG PO DAILY Enoxaparin Sodium (Lovenox) 40 Mg/0.4 Ml Syringe, 40 MG SC DAILY Scheduled PRN Acetaminophen (Acetaminophen) 325 Mg Tablet, 650 MG PO Q4H PRN for PAIN OR FEVER Allergies Coded Allergies: No Known Allergies (Unverified , 12/09/19) Current Medications Current Medications Medications (Trade) Dose Ordered Sig/Wilian Route PRN Reason Start Time Stop Time Status Last Admin Dose Admin Acetaminophen (Tylenol Tab) 650 mg Q4H PRN PO PAIN OR FEVER 12/16/19 15:45 Aspirin (Aspirin) 325 mg DAILY PO 12/17/19 09:00 12/17/19 08:49 Enoxaparin Sodium (Lovenox) 40 mg DAILY SC 12/17/19 09:00 12/17/19 08:49 Home Med (Med Rec Complete!) ASDIRECTED XX 12/16/19 15:15 12/16/19 15:05 DC Mexiletine HCl (Mexitil) 150 mg TID PO 12/17/19 16:00 12/17/19 13:07 DC Sodium Chloride (Saline Lock Flush) 2 ml ASDIRECTED PRN IV SEE LABEL COMMENTS 12/16/19 20:30 Sodium Chloride (Saline Lock Flush) 2 ml SLF IV 12/16/19 22:00 12/17/19 14:20 Sotalol HCl (Betapace) 80 mg BID PO 12/16/19 21:00 12/17/19 12:39 DC 12/17/19 08:49 Carla Kolb MD Dec 17, 2019 15:11
[2019-12-17] MEDS ORDERED: MEXILETINE 150 MG CAP PO SCH (16:00)
== END 2019-12-17 15:40 | disposition other institution (70) ==
LOC: M ED 13:08 → M PCU 13:09 → ENRESERV 15:43 → M PCU 16:05
PROVIDERS: ADMIT Internal Medicine; ATTEND Internal Medicine
DX: I47.2 Ventricular tachycardia (principal); E05.90 Thyrotoxicosis, unspecified without thyrotoxic crisis or storm; G45.9 Transient cerebral ischemic attack, unspecified; Z79.01 Long term (current) use of anticoagulants; Z79.82 Long term (current) use of aspirin
CPT/HCPCS: 36415; 70450; 70551; 71045; 80048; 80053; 80061; 82330; 82550; 82553; 83735; 84132; 84436; 84443; 84479; 84484; 85025; 85027; 85610; 85730; 86850; 86900; 86901; 93005; 93041; 93880; 94760; 96372; 99285; J1650

== ENCOUNTER → 2020-02-27 | Outpatient (CLI) | payer BC ==
[~2020-02-27] MED LIST changes: +ACET1TAB55 PO; +ASPI-1 PO; +LOVE1INJ SC; +SOTA80TA53 PO
[2020-02-27 13:46] LABS: THYROID STIMULATING HORMONE < 0.005 uIU/ML (0.358-3.740); TOTAL T3 96.4 NG/DL (60.0-181.0)
== END ==
LOC: M PLALAB 11:08
PROVIDERS: ATTEND Internal Medicine Endocrinology, Diabetes & Metabolism
DX: R94.6 Abnormal results of thyroid function studies (principal)

== ENCOUNTER → 2020-03-30 | Outpatient (CLI) | payer BC ==
--- NOTE | 2020-05-19 08:08 | REP ---
RADIONUCLIDE THYROID UPTAKE AND SCAN: HISTORY: Abnormal results of thyroid function studies. TECHNIQUE: 367.0 mCi of I-123 sodium iodine is ingested and 24-hour uptake value is acquired along with functional images. FINDINGS: The 24-hour uptake value is somewhat decreased at 11.63% (25-35%). Functional images demonstrates homogeneous uptake bilaterally in the thyroid lobes. No cold or warm lesion is seen. IMPRESSION: Decreased uptake. Normal homogeneous function. No cold or warm lesion seen. MTDD
== END ==
LOC: M RAD 13:30
PROVIDERS: ATTEND Internal Medicine Endocrinology, Diabetes & Metabolism
DX: R94.6 Abnormal results of thyroid function studies (principal)
CPT/HCPCS: 78012; A9516

== ENCOUNTER → 2020-05-15 | Outpatient (REF) | payer BC ==
[2020-05-15 14:49] LABS: FREE T4 0.98 NG/DL (0.76-1.46); THYROID STIMULATING HORMONE < 0.005 uIU/ML (0.358-3.740)
== END ==
LOC: M LABDRWAD 12:32
PROVIDERS: ATTEND Nurse Practitioner Family
DX: R94.6 Abnormal results of thyroid function studies (principal)

== ENCOUNTER → 2020-07-28 | Outpatient (CLI) | payer BC ==
[2020-07-28 11:57] LABS: FREE T4 0.92 NG/DL (0.76-1.46); THYROID STIMULATING HORMONE < 0.005 uIU/ML (0.358-3.740)
== END ==
LOC: M PLALAB 08:15
PROVIDERS: ATTEND Nurse Practitioner Family
DX: R94.6 Abnormal results of thyroid function studies (principal)

== ENCOUNTER → 2020-08-04 | Outpatient (CLI) | payer BC ==
[2020-08-04 18:18] LABS: FOLLICLE STIMULATING HORMONE 6.9 mIU/mL (1.4-18.1); LUTEINIZING HORMONE 5.3 mIU/mL (1.5-9.3); TESTOSTERONE 203 NG/DL (241-827)
[2020-08-04 20:43] LABS: THYROID STIMULATING HORMONE < 0.005 uIU/ML (0.358-3.740)
== END ==
LOC: M PLALAB 15:44
PROVIDERS: ATTEND Nurse Practitioner Family
DX: R94.6 Abnormal results of thyroid function studies (principal)

== ENCOUNTER → 2020-08-19 | Outpatient (CLI) | payer BC ==
[~2020-08-19] MED LIST changes: +PROHANCE 279.3MG/ML 15ML VIAL As Ordered ONE; +PROHANCE 279.3MG/ML 5ML VIAL As Ordered ONE
--- NOTE | 2020-08-19 16:29 | REPVR ---
PROCEDURE INFORMATION: Exam: MR Head Without and With Contrast, Sella Exam date and time: 08/19/2020 4:00 PM Age: 44 years old Clinical indication: Abnormal findings; Abnormal lab test; Low tsh; Other: Cardiac issues; Patient HX: Oth pituitary gland / abn results of thyrdisorder pituit; Additional info: Oth disorder pituitary gland / abn results of thyr TECHNIQUE: Imaging protocol: MR of the head without and with intravenous contrast. Exam focused on the sella. Contrast material: PROHANCE; Contrast volume: 10 ml; Contrast route: INTRAVENOUS (IV); COMPARISON: MRI-Brain without Contrast 12/16/2019 4:28 PM FINDINGS: Brain: There is no acute intracranial hemorrhage, cerebral edema, or midline shift. No restricted diffusion is present to suggest acute infarction. Ventricles: No hydrocephalus. Sinuses: There is mild mucosal thickening noted within the paranasal sinuses. Mastoid air cells: The mastoid air cells are clear. Sella: There is a 4 mm area of heterogeneity within the pituitary gland, just to the left of midline on series 1001 frame 9. This is not confirmed on the dynamic enhanced sequences or other sequences through the pituitary gland. This could represent a tiny adenoma or area heterogeneity/artifact. The pituitary stock is midline. Bones/joints: Unremarkable. IMPRESSION: 1. Questionable 4 mm pituitary microadenoma versus artifact. 2. No acute intracranial abnormality. Electronically signed by: Danie Conley On 08/19/2020 16:29:32 PM
== END ==
LOC: M RAD 14:46
PROVIDERS: ATTEND Nurse Practitioner Family
DX: E23.6 Other disorders of pituitary gland (principal); R94.6 Abnormal results of thyroid function studies
CPT/HCPCS: 70553; A9576

== ENCOUNTER → 2020-08-31 | Outpatient (CLI) | payer BC ==
[~2020-08-31] MED LIST changes: -PROHANCE 279.3MG/ML 15ML VIAL As Ordered ONE; -PROHANCE 279.3MG/ML 5ML VIAL As Ordered ONE
== END ==
LOC: M PLALAB 08:22
PROVIDERS: ATTEND Nurse Practitioner Family
DX: R94.6 Abnormal results of thyroid function studies (principal)

== ENCOUNTER → 2020-12-31 | Outpatient (REF) | payer BC ==
[2020-12-31 11:12] LABS: THYROID STIMULATING HORMONE < 0.005 uIU/ML (0.358-3.740)
== END ==
LOC: M PLALAB 09:44
PROVIDERS: ATTEND Nurse Practitioner Family
DX: R94.6 Abnormal results of thyroid function studies (principal)